=== PATIENT | male | born 1970 | race Caucasian/White ===

== ENCOUNTER 2018-02-26 11:01 | Observation (INO) | payer BC ==
[2018-02-26] MEDS ORDERED: Ondansetron 4 MG Tab.DIS PO PRN (11:18)
[2018-02-26] MEDS ORDERED: Ondansetron 4 MG/2 ML SDV IVPUSH PRN (11:19)
[2018-02-26] MEDS: Loperamide 2 MG Cap PO PRN ×2 (11:37→17:09)
[2018-02-26] MEDS: Dextrose 5%-0.45% NaCl 1,000 ML IV SCH ×2 (11:37→19:11)
[2018-02-26] MEDS: Ciprofloxacin in D5W 400 MG in Premix Bag 1 BAG IV SCH ×4 (11:37→22:41)
[2018-02-26] MEDS: Acetaminophen 325 MG Tab PO PRN (17:09)
[2018-02-27] MEDS: Dextrose 5%-0.45% NaCl 1,000 ML IV SCH (02:48)
[2018-02-27] MEDS: Omeprazole 20 MG Cap.CR PO SCH (07:38)
[2018-02-27 08:10] LABS: CHLORIDE,CL 102 mmol/L (98-115); SODIUM,NA 139 mmol/L (136-145)
[2018-02-27] MEDS: Sertraline 50 MG Tab PO SCH (08:50)
[2018-02-27] MEDS: predniSONE 10 MG Tab PO SCH (08:50)
[2018-02-27] MEDS: Cholecalciferol (Vitamin D3) 1,000 Unit Tab PO SCH (08:50)
[2018-02-27] MEDS: Loperamide 2 MG Cap PO PRN ×3 (09:03→13:02)
[2018-02-27] MEDS ORDERED: Lactated Ringers 1,000 ML IV SCH (10:45)
--- NOTE | 2018-02-27 11:28 | PN ---
02/27/2018 PATIENT NAME: LARISSA HERNANDEZ CHIEF COMPLAINT: Does overall feel better, however, nurses did report 2-3 loose stools this morning. The patient is afebrile. Less abdominal pain. BRIEF HISTORY: This patient was admitted by Anderson Robledo from the [facility]. He had some significant generalized abdominal pain even on touch with associated diarrhea and nausea. The patient stated he ate pizza, however, denies any ill contacts. He had significant abdominal cramping and abdominal pain, up to 20 loose stools today prior to coming in with some associated nausea and some anorexia, afebrile, however, does admit to chills. No vomiting. Workup at [facility] on the day of admission includes white count 10.5, normal hemoglobin and hematocrit, glucose 149, normal electrolytes. ALT two times elevation 81, AST slightly elevated at 37. Stool for lactoferrin, C diff culture, Giardia, and parasites is still pending. Labs since admission, white count 6.5, neutrophils 75%. Electrolytes are normal. AST 68, ALT 94, alkaline phos normal. REVIEW OF SYSTEMS: Denies chest pain. Denies shortness of breath. Denies abdominal pain. Denies abdominal distention. Denies nausea. Denies any blood or mucus in stool, however, frequent watery stools, however, have slowed down. PHYSICAL EXAMINATION: VITAL SIGNS: Temperature 98.9, that is T-max, blood pressure 147/91, heart rate 66, O2 sats 96% on room air. Intake and output are approximately 3800 in and 2500 out. MOUTH: Dry mucous membranes orally LUNGS: Clear to auscultation. CV: Regular rate and rhythm. Skin: Dry. ABDOMEN: Large body habitus. Low hypotonic bowel tones. Nondistended, non- taut, nontender. MICROBIOLOGY REPORT: No microbiology obtained in hospital. ASSESSMENT AND PLAN: 1. Viral gastroenteritis, most likely etiology. We will wait for lactoferrin, C diff, occult blood, bacteria, Shigella, and stool culture pending. Continue with Imodium, likely prudent, although likely viral, we will continue with ciprofloxacin since he is clinically improving. 2. Dehydration, extracellular fluid volume deficit. We will change from D5- 1/2 to LR in order to provide extracellular fluid volume replacement and to prevent any hyponatremia. Continue with clear liquid diet. Monitor for any fever or any signs and symptoms of acute abdomen. Monitor for ongoing LFT elevation. /[id number]/MODL
[2018-02-27] MEDS: Ciprofloxacin in D5W 400 MG in Premix Bag 1 BAG IV SCH ×4 (11:30→23:18)
[2018-02-27] MEDS: Acetaminophen 325 MG Tab PO PRN (20:48)
[2018-02-28] MEDS: Omeprazole 20 MG Cap.CR PO SCH (07:31)
[2018-02-28 07:44] LABS: CHLORIDE,CL 106 mmol/L (98-115); SODIUM,NA 141 mmol/L (136-145)
[2018-02-28] MEDS: Sertraline 50 MG Tab PO SCH (08:10)
[2018-02-28] MEDS: Cholecalciferol (Vitamin D3) 1,000 Unit Tab PO SCH (08:10)
[2018-02-28] MEDS: predniSONE 10 MG Tab PO SCH (08:10)
[2018-02-28] MEDS ORDERED: Lisinopril 10 MG Tab PO SCH (09:00)
[2018-02-28] MEDS ORDERED: amLODIPine 5 MG Tab PO SCH (09:00)
[2018-02-28] MEDS: Ciprofloxacin in D5W 400 MG in Premix Bag 1 BAG IV SCH ×2 (10:46)
[2018-02-28] MEDS ORDERED: Sodium Chloride 0.9% 100 ML IV SCH (11:00)
--- NOTE | 2018-02-28 11:59 | DISCH ---
ADMITTING DIAGNOSIS: Gastroenteritis and dehydration. FINAL DIAGNOSIS: Gastroenteritis with elevated wbc's in stool, improving on Cipro. BRIEF HISTORY AND ESSENTIAL PHYSICAL FINDINGS: This is a 47-year-old gentleman who presented to the clinic on Sunday with concerns about diarrhea, abdominal pain, some nausea, and dehydration. The patient states that he ate some pizza before he went to bed and then he woke up in the morning. He was having abdominal pain with several diarrhea stools. He says on Sunday he had 15 to 20 loose watery stools. He was having severe abdominal pain. He said he did not know if he was running a fever, but he was hot and cold and sweaty, just did not feel good. The patient was seen in the clinic and admitted at that time. SIGNIFICANT LABS XRAYS AND CONSULTATION FINDINGS: The patient's lab work in the clinic showed a white count elevated at 10.5 with a shift to the left. The patient had a repeat CBC while he was in the hospital. CBC showed a white count within normal range at 6.5, hemoglobin 15.1, platelet count at 130. The patient's chemistry panel on 02/27/2018 in the hospital was unremarkable. His liver enzymes were slightly elevated. AST was 68, ALT 94. A repeat basic metabolic panel was obtained on day of discharge 02/28/2018 was unremarkable. The patient's stool cultures that were obtained in the clinic; C difficile was negative, stool for Shiga toxin 1 and 2 were both not detected. The patient's lactoferrin was positive in his stool. COURSE IN HOSPITAL WITH COMPLICATIONS IF ANY: The patient was admitted. He was having severe abdominal pain and multiple loose watery stools. On the day of discharge, he was able to tolerate a BRAT diet. He says he ate some toast, some bananas, and some cream of wheat for breakfast and he was able to keep it down. No nausea. His abdominal pain is much improved from when he came in. He had no stool last night. He has had no stools yet today, seems to be improving. CONDITION TREATMENT AND FINAL DISPOSITION ON DISCHARGE AND PROGNOSIS: Condition is much improved. Prognosis is fair. IMPRESSION AND PLAN: 1. Gastroenteritis. Plan: I am going to send the patient home today after he eats lunch. If he has no problems with lunch and no further diarrhea stools, I am going to send him home on Cipro 500 mg twice a day for seven more days. He can have some Lomotil 1 tab every 6 hours as needed for diarrhea. I am also going to send him home with some Bentyl 20 mg tablets, he can take every 6 hours for abdominal cramping. Encourage the patient to eat a bland diet and drink plenty of fluids. He will follow up in the clinic with myself in one week. 2. Hypertension. Plan: We will restart patient back on his Norvasc 5 mg daily along with lisinopril 10 mg daily. His blood pressure has been well maintained while in the hospital. 3. Some nausea with heartburn. He has been on omeprazole while here in the hospital. I am going to send him home on some omeprazole 20 mg daily in the morning for two weeks. 4. History of sarcoidosis. Continue the patient on 10 mg prednisone daily. 5. History of depression. Plan: Continue Zoloft 50 mg daily. /[id number]/MODL
== END 2018-02-28 13:00 | disposition home or self-care (01) ==
LOC: KA.MS 11:01
PROVIDERS: ADMIT Physician Assistant; ATTEND Family Medicine
DX: K52.9 Noninfective gastroenteritis and colitis, unspecified (principal); E86.0 Dehydration; I10 Essential (primary) hypertension; R12 Heartburn; F32.9 Major depressive disorder, single episode, unspecified; D86.9 Sarcoidosis, unspecified; E78.00 Pure hypercholesterolemia, unspecified; F41.9 Anxiety disorder, unspecified; Z79.899 Other long term (current) drug therapy; Z88.0 Allergy status to penicillin; Z88.2 Allergy status to sulfonamides
CPT/HCPCS: 36415; 80048; 80053; 85025; 96361; 96365; 96366; A9270-GY; G0378; J0744; J7042; J7050; J7120

== ENCOUNTER 2025-08-04 02:13 | Emergency (ER) | payer BC ==
[2025-08-04] MEDS ORDERED: Sodium Chloride 0.9% 10 ML Syringe FLUSH PRN (02:41)
[2025-08-04 02:47] LABS: BASOPHILS ABSOLUTE AUTO 0.02 10^3/uL (0.00-0.10); BASOPHILS PERCENT AUTO 0.2 % (0.0-1.0); EOSINOPHILS ABSOLUTE AUTO 0.06 10^3/uL (0.10-0.30); EOSINOPHILS PERCENT AUTO 0.7 % (1.0-3.0); IMMATURE GRAN ABSOLUTE AUTO 0.01 10^3/uL (0.00-0.04); IMMATURE GRAN PERCENT AUTO 0.1 % (0.0-0.4); LYMPHOCYTES ABSOLUTE AUTO 1.27 10^3/uL (1.00-4.00); LYMPHOCYTES PERCENT AUTO 14.6 % (20.0-40.0); MEAN PLATELET VOLUME 9.8 fL (7.4-10.4); MONOCYTES ABSOLUTE AUTO 0.87 10^3/uL (0.10-0.80); MONOCYTES PERCENT AUTO 10.0 % (2.0-8.0); NEUTROPHILS ABSOLUTE AUTO 6.45 10^3/uL (2.50-7.00); NEUTROPHILS PERCENT AUTO 74.4 % (50.0-70.0); PLATELET COUNT,PLT 192 10^3/uL (150-400); RED BLOOD CELL COUNT 4.92 10^6/uL (4.50-6.00); RED CELL DISTRIBUTION WIDTH 12.4 % (11.5-14.5); WHITE BLOOD CELL COUNT,WBC 8.68 10^3/uL (5.00-10.00)
[2025-08-04] MEDS: Ondansetron 4 MG/2 ML SDV IVPUSH ONE (02:56)
[2025-08-04 02:58] LABS: ALANINE AMINOTRANSFERASE,ALT 55.0 U/L (14-63); ASPARTATE AMNIOTRANSFERASE,AST 31.0 U/L (15-37); BILIRUBIN TOTAL 1.3 mg/dL (0.2-1.0); BLOOD UREA NITROGEN,BUN 10.0 mg/dL (7-18); CARBON DIOXIDE,CO2 28.8 mmol/L (21.0-32.0); CHLORIDE,CL 102.0 mmol/L (98-107); CREATININE 0.65 mg/dL (0.51-1.17); EST CRCL DRUG DOSING (CG) 131.03 mL/min; GLUCOSE RANDOM 118.0 mg/dL (70-140); POTASSIUM,K 3.4 mmol/L (3.5-5.1); PROTEIN TOTAL,TP 7.7 g/dL (6.4-8.2); SODIUM,NA 140.0 mmol/L (136-145)
[2025-08-04 02:59] LABS: APPEARANCE,URINE SLIGHTLY CLOUDY (CLEAR); EPITHELIAL CELLS,URINE RARE /LPF; GLUCOSE,URINE NEGATIVE (NEGATIVE); OCCULT BLOOD,URINE SMALL (NEGATIVE)
[2025-08-04 03:00] LABS: ESTIMATED GFR 111.0 mL/min (>=60)
[2025-08-04] MEDS: Iopamidol 755 Mg/ML 100 ML Bottle IV ONE (03:28)
== END 2025-08-04 04:29 | disposition home or self-care (01) ==
LOC: KA.ED 02:13
DX: K52.9 Noninfective gastroenteritis and colitis, unspecified (principal); I10 Essential (primary) hypertension; K21.9 Gastro-esophageal reflux disease without esophagitis; Z79.899 Other long term (current) drug therapy; Z88.0 Allergy status to penicillin; Z88.8 Allergy status to other drugs, medicaments and biological substances
CPT/HCPCS: 74177; 80053; 81001; 83690; 85025; 96361; 96374; 96375; 99284-25; J2270; J2405; J7030; Q9967